=== PATIENT | male | born 1940 | race Caucasian/White ===

== ENCOUNTER 2017-01-13 05:51 | Day surgery (SDC) | payer MEDICARE ==
[2017-01-12 11:52] VITALS: BMI 21.9
[2017-01-13] MEDS ORDERED: Neomycin-Polymyxin 1 ML AMP ONE (06:30)
[2017-01-13] MEDS ORDERED: Lidocaine 2% w/Epinephrine 1:200K 20 ML VIAL ONE (06:30)
[2017-01-13] MEDS ORDERED: Bupivacaine PF 0.5% 30 ML VIAL ONE (06:30)
[2017-01-13 06:32] LABS: Hematocrit 53.2 % (42.0-52.0); Mean Platelet Volume 6.7 fL (7.4-10.4); White Blood Cell (WBC) Count 5.2 thou/uL (4.8-10.8)
[2017-01-13] MEDS ORDERED: CEFAZOLIN/Water 2 GM/20 ML SYRINGE ONE (06:33)
[2017-01-13 06:51] LABS: Anion Gap 10 mmol/L (10-20); BUN (Urea Nitrogen) 17 mg/dL (8.4-25.7); Calc. Creatinine Clearance 61 mL/min (70-130); Calcium 10.4 mg/dL (7.8-10.44); Carbon Dioxide 27 mmol/L (23-31); Chloride 106 mmol/L (98-107); Estimated GFR-MDRD 78
[2017-01-13] MEDS ORDERED: Fentanyl 100 MCG/2 ML VIAL ONE (06:57)
[2017-01-13] MEDS ORDERED: Lidocaine 1% (PF) 30 ML VIAL ONE (07:18)
--- NOTE | 2017-01-13 08:31 | OP ---
DATE OF OPERATION: 01/13/2017 PREOPERATIVE DIAGNOSIS: Right ring trigger finger. POSTOPERATIVE DIAGNOSIS: Right ring trigger finger. PROCEDURE: Right ring trigger finger release. SURGEON: Shay Braun M.D. ANESTHESIA: Local using 1% lidocaine plain. TECHNIQUE: The patient was given preoperative IV antibiotics, taken to the operating room, placed i n the supine position. The right hand and forearm were sterilely prepped and draped in the usual fa shion. 1% lidocaine plain was used with a local in the palm of the hand at the base of the ring fin carmelo over the area of the A1 bess. The right hand and forearm was exsanguinated and tourniquet at the proximal right forearm was raised to 200 mmHg. A longitudinal incision was made in the distal f lexor crease over the A1 bess. Blunt dissection was made down through the palmar fascia down to t he flexor tendon sheath. The A1 bess was noted to be very tight and was divided with tenotomy sci ssors. The underlying flexor tendons were intact and in good condition. The patient was able to th en actively flex and extend the ring finger without any further triggering. The wound was then irri gated with normal saline and closed using 3-0 Rapide. A sterile dressing was applied. The tourniqu et was released. The patient was transferred back to day surgery in stable condition. ESTIMATED BLOOD LOSS: None. COMPLICATIONS: None. TOURNIQUET TIME: Seven minutes. DISCHARGE MEDICATIONS: None. The patient has on the chart that he is allergic to HYDROCODONE, CODEINE and TRAMADOL and was told b ecause of medical conditions that he is unable to take anti-inflammatories, so the patient will have to use ice and Tylenol for pain relief. Follow up in my office in 1 week.
== END 2017-01-13 08:30 | disposition home or self-care (01) ==
LOC: SDC 05:51
PROVIDERS: ATTEND Orthopaedic Surgery
PROC: 0LN70ZZ Release Right Hand Tendon, Open Approach (ICD-10-PCS; principal; 2017-01-13)
DX: M65.341 Trigger finger, right ring finger (principal); Z88.5 Allergy status to narcotic agent; Z88.2 Allergy status to sulfonamides; Z88.1 Allergy status to other antibiotic agents; Z88.8 Allergy status to other drugs, medicaments and biological substances; Z79.82 Long term (current) use of aspirin; Z79.899 Other long term (current) drug therapy; Z90.49 Acquired absence of other specified parts of digestive tract; Z98.890 Other specified postprocedural states; Z87.891 Personal history of nicotine dependence
CPT/HCPCS: 36415; 80048; 85027; 99152; J2001; J3010; S0020

== ENCOUNTER 2017-04-05 13:11 | Emergency (ER) | payer MEDICARE ==
[2017-04-05 13:42] LABS: #Eosinphils 0.1 thou/uL (0.0-0.7); #Lymphocytes 0.9 thou/uL (1.20-3.40); #Monocytes 0.4 thou/uL (0.11-0.59); #Neutrophils 3.3 thou/uL (1.40-6.50); %Basophils 0.8 % (0.0-1.0); %Eosinophils 1.6 % (0.0-10.0); %Lymphocytes 19.6 % (21.0-51.0); %Monocytes 8.1 % (0.0-10.0); %Neutrophils 69.9 % (42.0-75.0); Hemoglobin 15.6 g/dL (14.0-18.0); Mean Corpuscular HGB CONC 33.3 g/dL (32.0-36.0); Mean Corpuscular Hemoglobin 31.7 pg (27.0-31.0); Mean Corpuscular Volume 95.4 fl (80.0-94.0); Platelet Count 145 thou/uL (130-400); RBC Distribution Width 11.8 % (11.5-14.5); Red Blood Cell (RBC) Count 4.91 mill/uL (4.70-6.10); White Blood Cell (WBC) Count 4.8 thou/uL (4.8-10.8)
[2017-04-05 14:03] LABS: ALT (SGPT) 29 U/L (8-55); AST (SGOT) 33 U/L (5-34); Albumin 4.3 g/dL (3.4-4.8); Alkaline Phosphatase 62 U/L (40-150); Anion Gap 12 mmol/L (10-20); BUN (Urea Nitrogen) 17 mg/dL (8.4-25.7); Bilirubin, Total 1.3 mg/dL (0.2-1.2); CK (CPK) 162 U/L (30-200); Calc. Creatinine Clearance 0 mL/min (70-130); Calcium 10.4 mg/dL (7.8-10.44); Carbon Dioxide 26 mmol/L (23-31); Chloride 106 mmol/L (98-107); Estimated GFR-MDRD 78; Globulin 2.5 g/dL (2.4-3.5); Glucose 108 mg/dL (83-110); Potassium 4.3 mmol/L (3.5-5.1); Protein, Total 6.8 g/dL (5.8-8.1); Sodium 140 mmol/L (136-145)
[2017-04-05 14:06] LABS: CKMB 6.1 ng/mL (0-6.6); Troponin I Less than 0.010 ng/mL (< 0.028)
--- NOTE | 2017-04-05 14:15 | RAD ---
CHEST 1 VIEW: HISTORY: Chest pain. COMPARISON: Chest 1 view 07/28/16. FINDINGS: The lungs are clear. No pneumothorax or effusion. Cardiac silhouette and mediastinal contours are w ithin normal limits. IMPRESSION: No acute intrathoracic abnormality. POS: [facility]
== END 2017-04-05 15:11 | disposition left against medical advice (07) ==
LOC: ERS 13:11
DX: R07.2 Precordial pain (principal); I25.2 Old myocardial infarction; E78.5 Hyperlipidemia, unspecified; I10 Essential (primary) hypertension; K21.9 Gastro-esophageal reflux disease without esophagitis; Z85.46 Personal history of malignant neoplasm of prostate; Z87.891 Personal history of nicotine dependence; Z79.899 Other long term (current) drug therapy; Z79.82 Long term (current) use of aspirin
CPT/HCPCS: 71045; 80053; 82553; 84484; 85025; 93005; 94760

== ENCOUNTER 2017-08-03 11:44 | Inpatient (IN) | payer MEDICARE ==
[2017-08-03 12:05] LABS: #Eosinphils 0.1 thou/uL (0.0-0.7); #Lymphocytes 1.2 thou/uL (1.20-3.40); #Monocytes 0.7 thou/uL (0.11-0.59); #Neutrophils 4.5 thou/uL (1.40-6.50); %Basophils 0.4 % (0.0-1.0); %Eosinophils 1.9 % (0.0-10.0); %Lymphocytes 18.3 % (21.0-51.0); %Monocytes 10.2 % (0.0-10.0); %Neutrophils 69.2 % (42.0-75.0); Hemoglobin 16.4 g/dL (14.0-18.0); Mean Corpuscular HGB CONC 34.3 g/dL (32.0-36.0); Mean Corpuscular Volume 93.1 fl (80.0-94.0); Mean Platelet Volume 6.8 fL (7.4-10.4); Platelet Count 150 thou/uL (130-400); RBC Distribution Width 11.8 % (11.5-14.5); Red Blood Cell (RBC) Count 5.14 mill/uL (4.70-6.10); White Blood Cell (WBC) Count 6.5 thou/uL (4.8-10.8)
[2017-08-03 12:29] LABS: ALT (SGPT) 28 U/L (8-55); AST (SGOT) 29 U/L (5-34); Albumin 4.4 g/dL (3.4-4.8); Alkaline Phosphatase 67 U/L (40-150); Anion Gap 9 mmol/L (10-20); BUN (Urea Nitrogen) 19 mg/dL (8.4-25.7); Calc. Creatinine Clearance 0 mL/min (70-130); Calcium 10.2 mg/dL (7.8-10.44); Carbon Dioxide 26 mmol/L (23-31); Chloride 107 mmol/L (98-107); Estimated GFR-MDRD 78; Globulin 2.6 g/dL (2.4-3.5); Glucose 106 mg/dL (83-110); Potassium 4.6 mmol/L (3.5-5.1); Sodium 137 mmol/L (136-145)
[2017-08-03 12:33] LABS: CKMB 4.5 ng/mL (0-6.6); Troponin I Less than 0.010 ng/mL (< 0.028)
--- NOTE | 2017-08-03 13:29 | RAD ---
PORTABLE CHEST ONE VIEW: Date: 08-03-17 Time: 12:17 p.m. History: Chest pain. FINDINGS: Comparison made with exam of 04-05-17. The heart size is normal. The lungs are expanded without focal areas of consolidation, pneumothorax, or pleural effusions. There are post op changes in the right shoulder. IMPRESSION: No acute process. POS: [facility]
[2017-08-03] MEDS ORDERED: Fluticasone Propionate Nasal Spray 16 gm Bottle NASAL PRN (14:09)
--- NOTE | 2017-08-03 15:49 | HP ---
DATE OF ADMISSION: 08/03/2017 CHIEF COMPLAINT: Chest pain. HISTORY OF PRESENT ILLNESS: This is a 77-year-old white male with known past medical history of jong nary artery disease with status post stents x5 many years ago and patient has been coming with recurr ent chest pains. The last time, he came was in March, but had to return back home as he did not wa nt to be admitted on an observation basis. At this time, the patient was at a gym and he was on an e xercise bike and as soon as he got onto the bike before when he started, he noted a severe chest pain in the center of his chest and decided to come to the ER. When the patient came to the ER, he was s itting on the bed and as he moved to the side, he developed the sudden chest pain, but his troponin s o far has been negative. His EKG was normal. Patient was seen in the ER, he was alert and oriented and did not appear to be in acute distress. He denies having any cough or any congestion, any histor y of sick contacts. He denied having any fevers. He denies having any trauma to his chest. PAST MEDICAL HISTORY: 1. History of coronary artery disease with status post stents. 2. Hypertension. 3. Hyperlipidemia. PAST SURGICAL HISTORY: 1. Appendectomy. 2. History of basal cell carcinoma excised from his left side of his cheek. 3. Bilateral cataract surgery. 4. Left inguinal hernia repair and colon resection in 2004. 5. Rotator cuff surgery. 6. Cardiac catheterization in 2007, stent in 2001. SOCIAL HISTORY: Patient has no history of smoking. No history of alcohol, no history of illicit pepper g use. He lives with his . FAMILY HISTORY: No evidence of family history of coronary artery disease, dying at the less than 50s -60s. Mother had a history of stroke and old age. REVIEW OF SYSTEMS: All 12 systems are reviewed with the patient thoroughly and found to be negative at this time except the ones described in the HPI. The following complete review of systems was nega tive, unless otherwise mentioned in the HPI or below: Constitutional: Weight loss or gain, sense of well-being, ability to conduct usual activities, exercise tolerance. Skin/Breast: Rash, itching, ch anges in hair growth or loss, nail changes, breast lumps, tenderness, swelling, nipple discharge. Ey es: Vision, double vision, tearing, blind spots, pain. ENT/Mouth: Headaches (location, time of ons et, duration, precipitating factors), vertigo, lightheadedness, injury. Vision, double vision, teari ng, blind spots, pain, nose bleeding, colds, obstruction, discharge, dental difficulties, gingival bl eeding, dentures, neck stiffness, pain, tenderness, masses in thyroid or other areas. Cardiovascular : Precordial pain, substernal distress, palpitations, syncope, dyspnea on exertion, orthopnea, noctu rnal paroxysmal dyspnea, edema, cyanosis, hypertension, heart murmurs, varicosities, phlebitis, pedro luis ication. Respiratory: Pain, shortness of breath, wheezing, stridor, cough, hemoptysis, fever or nig ht sweats. Gastrointestinal: Poor appetite, dysphagia, indigestion, abdominal pain, heartburn, eruc tation, nausea, vomiting, hematemesis, jaundice, constipation, or diarrhea, abnormal stools (jennifer-col ored, tarry, bloody, greasy, foul smelling), flatulence, hemorrhoids, recent changes in bowel habits. Genitourinary: Urgency, frequency, dysuria, nocturia, hematuria, polyuria, oliguria, unusual (or c hange in) color of urine, stones, hesitancy, change in size of stream, dribbling, acute retention or incontinence, libido, potency. Musculoskeletal: Pain, swelling, redness or heat of muscles or joint s, limitation, of motion, muscular weakness, atrophy, cramps. Neurologic/Psychiatric: Convulsions, par alyses, tremor, incoordination, parasthesias, difficulties with memory of speech, sensory or motor di sturbances, or muscular coordination (ataxia, tremor), emotional problems, anxiety, depression, previ ous psychiatric care, unusual perceptions, hallucinations. Allergy/Immunologic: Skin rash, anemia, bleeding tendency, polydipsia, polyuria, intolerance to heat or cold. HOME MEDICATIONS: Nitroglycerin spray, polyethylene glycol 17 grams p.o. at bedtime, aspirin 325 mg p.o. daily, amlodipine 2.5 mg p.o. daily, Zetia 10 mg p.o. at bedtime, fluticasone 1 spray daily, met oprolol 25 mg p.o. daily, ranitidine 300 mg p.o. daily, rosuvastatin 20 mg p.o. at bedtime, tamsulosi n 0.4 mg p.o. b.i.d. PHYSICAL EXAMINATION: VITAL SIGNS: Blood pressure is 130/88, heart rate is 56, respiratory rate is 18, saturation is 98% o n room air. GENERAL: The patient is moderately built and moderately nourished, does not appear to be in acute di stress at this time, is alert, oriented x3. HEENT: Atraumatic, normocephalic. PERRLA. Extraocular muscles intact. Mucous membranes pink and m oist. CARDIOVASCULAR: S1, S2 normal. No murmurs, rubs or gallops. LUNGS: Bilateral air entry was equal. No wheezing, no crackles. ABDOMEN: Soft, nontender. No guarding or rebound tenderness. Bowel sounds normal. MUSCULOSKELETAL: No calf tenderness. No pedal edema. No joint tenderness. No joint swelling. SKIN: No cyanosis, no erythema, no rash, no pallor. CENTRAL NERVOUS SYSTEM: Cranial nerves II-XII intact. No focal deficits were noted. LABORATORY DATA: WBC 6.5, hemoglobin is 16.1, hematocrit is 47.9, platelets is 150. Sodium is 137, potassium is 4.6, chloride 107, bicarbonate 26, BUN 19, creatinine 0.9, troponin 0.010. EKG was showing sinus bradycardia, but otherwise no evidence of any ST segment changes. Chest x-ray was unremarkable. ASSESSMENT AND PLAN: 1. Acute unstable angina. 2. Hypertension. 3. History of coronary artery disease. 4. Hyperlipidemia. PLAN: 1. Plan is to closely monitor this patient while in the hospital. We will keep him at bed rest at t his time and will consult cardiology. Patient has significant coronary artery disease history with 5 stents in the past and the patient had a chest pain 3 months ago, but was not evaluated by Cardiolog y and the patient had to go home from ER. The patient is high risk at this time. We will admit as a n inpatient as the patient would need at least 2 days and he would need a thorough evaluation of his cardiac status. At this time, we will do a 2-D echo and will closely monitor and we will hold off on his blood pressure and on his metoprolol at this time as the patient had the bradycardia and if it d rops less than 50, we will hold him at evening dose metoprolol. 2. Patient may need a nuclear stress test if his troponins remain negative, but because of the unsta ble angina, we will have Cardiology decide on that. 3. Patient has hypertension, well controlled. We will restart his home medications. We will closel y monitor blood pressures. 4. Hyperlipidemia. We will continue the patient on rosuvastatin. 5. History of coronary artery disease. We will continue the patient on aspirin at this time. 6. DVT prophylaxis. Lovenox 40 mg subQ daily. I spent 65 minutes with this patient.
[2017-08-03 16:19] LABS: Troponin I Less than 0.010 ng/mL (< 0.028)
[2017-08-03] MEDS ORDERED: Nitroglycerin 0.4 MG TAB (25 Tab Bottle) PO PRN (17:52)
[2017-08-03] MEDS ORDERED: Acetaminophen 650 MG Suppository PR PRN (17:52)
[2017-08-03] MEDS ORDERED: Ondansetron ODT 4 MG TAB PO PRN (17:52)
[2017-08-03 18:39] LABS: Troponin I Less than 0.010 ng/mL (< 0.028)
[2017-08-03 20:23] VITALS: BMI 22.2
[2017-08-03] MEDS: Famotidine 20 MG TAB PO SCH (21:02)
[2017-08-03] MEDS: Rosuvastatin 20 MG TAB PO SCH (21:02)
[2017-08-03] MEDS: Ezetimibe 10 MG TAB PO SCH (21:02)
[2017-08-03] MEDS: Docusate 100 MG CAP PO SCH (21:02)
[2017-08-03] MEDS: Tamsulosin HCl 0.4 MG CAP PO SCH (21:03)
[2017-08-04 05:20] LABS: #Eosinphils 0.2 thou/uL (0.0-0.7); #Monocytes 0.5 thou/uL (0.11-0.59); #Neutrophils 2.7 thou/uL (1.40-6.50); %Basophils 0.9 % (0.0-1.0); %Eosinophils 4.2 % (0.0-10.0); %Lymphocytes 22.4 % (21.0-51.0); %Neutrophils 60.5 % (42.0-75.0); Hemoglobin 15.9 g/dL (14.0-18.0); Mean Corpuscular HGB CONC 33.6 g/dL (32.0-36.0); Mean Corpuscular Hemoglobin 31.2 pg (27.0-31.0); Mean Corpuscular Volume 92.8 fl (80.0-94.0); Mean Platelet Volume 6.8 fL (7.4-10.4); Platelet Count 129 thou/uL (130-400); RBC Distribution Width 11.7 % (11.5-14.5); Red Blood Cell (RBC) Count 5.08 mill/uL (4.70-6.10); White Blood Cell (WBC) Count 4.5 thou/uL (4.8-10.8)
[2017-08-04 05:48] LABS: Anion Gap 10 mmol/L (10-20); BUN (Urea Nitrogen) 15 mg/dL (8.4-25.7); Calc. Creatinine Clearance 64 mL/min (70-130); Calcium 9.8 mg/dL (7.8-10.44); Carbon Dioxide 25 mmol/L (23-31); Cardiac Risk 2.4 (Less than 4.5); Chloride 108 mmol/L (98-107); Cholesterol 116 mg/dl (< 200 Desired); Estimated GFR-MDRD 85; Glucose 95 mg/dL (83-110); HDL Cholesterol 48 mg/dL (>60 Neg Risk); LDL Cholesterol, Calculated 57 mg/dL; Potassium 4.3 mmol/L (3.5-5.1); Sodium 139 mmol/L (136-145); Triglycerides 57 mg/dL (Less than 150)
[2017-08-04] MEDS ORDERED: Prevnar 13-Val Conj/PF 0.5 ML SYRINGE IM ONE (09:00)
[2017-08-04] MEDS ORDERED: Famotidine 20 MG TAB PO SCH (09:00)
[2017-08-04] MEDS ORDERED: Enoxaparin Sodium 40 MG/0.4 ML SYRINGE SC SCH (09:00)
[2017-08-04] MEDS: Tamsulosin HCl 0.4 MG CAP PO SCH ×3 (09:49→20:37)
[2017-08-04] MEDS: Aspirin 325 MG TAB PO SCH ×2 (09:49→11:39)
[2017-08-04] MEDS: Docusate 100 MG CAP PO SCH ×2 (09:49→20:37)
[2017-08-04] MEDS: Famotidine 20 MG TAB PO SCH ×3 (09:49→20:37)
[2017-08-04] MEDS: Amlodipine 5 MG TAB PO SCH ×2 (09:49→11:40)
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
[2017-08-04] MEDS: Ezetimibe 10 MG TAB PO SCH (20:37)
[2017-08-04] MEDS: Rosuvastatin 20 MG TAB PO SCH (20:37)
[2017-08-05] MEDS ORDERED: ADENOSINE 60 MG/20 ML VIAL ONE (10:11)
[2017-08-05] MEDS: Amlodipine 5 MG TAB PO SCH (10:47)
[2017-08-05] MEDS: Famotidine 20 MG TAB PO SCH (10:47)
[2017-08-05] MEDS: Docusate 100 MG CAP PO SCH (10:48)
[2017-08-05] MEDS: Aspirin 325 MG TAB PO SCH (10:49)
[2017-08-05] MEDS: Tamsulosin HCl 0.4 MG CAP PO SCH (10:49)
--- NOTE | 2017-08-05 11:54 | PDOC.PN ---
- Subjective Encounter Start Date: 08/04/17 Encounter Start Time: 15:15 Khai seen along with his at bedside. No other Concern noted. He had some imaging studoies of the stress test today. had chest pain again at rest. - Objective Resuscitation Status: Resuscitation Status FULL:Full Resuscitation MAR Reviewed: Yes Vital Signs & Weight: Vital Signs (12 hours) Temp Pulse Resp BP BP Pulse Ox 08/05/17 10:47 57 L 115/66 08/05/17 08:00 97.9 F 57 L 12 115/66 95 08/05/17 04:00 97.7 F 60 14 136/68 96 Weight Weight 140 lb 4.8 oz I&O: 08/04/17 08/05/17 08/06/17 06:59 06:59 06:59 Intake Total 340 840 Output Total 530 625 Balance -190 215 Result Diagrams: 08/04/17 04:53 08/04/17 04:53 Radiology Reviewed by me: Yes Phys Exam - Physical Examination HEENT: PERRLA, moist MMs Neck: no nodes, no JVD Respiratory: no wheezing, no rales Cardiovascular: RRR, no significant murmur Gastrointestinal: soft, non-tender Musculoskeletal: no edema, pulses present Neurological: normal sensation Dx/Plan (1) Chest pain Code(s): R07.9 - CHEST PAIN, UNSPECIFIED Status: Acute Qualifiers: Ischemic chest pain type: other angina pectoris type Comment: Pt has untable Angina, Scheduled for Stress test today and tomorrow. Pt will be continued on Aspirin/. Bb. (2) Coronary artery disease Code(s): I25.10 - ATHSCL HEART DISEASE OF [place] CORONARY ARTERY W/O ANG PCTRS Status: Chronic Qualifiers: Coronary Disease-Associated Artery/Lesion type: unspecified vessel or lesion type Associated angina: without angina Comment: Stable, no angina or CHF. (3) Dyslipidemia Code(s): E78.5 - HYPERLIPIDEMIA, UNSPECIFIED Status: Chronic Comment: on statin. (4) GERD (gastroesophageal reflux disease) Code(s): K21.9 - GASTRO-ESOPHAGEAL REFLUX DISEASE WITHOUT ESOPHAGITIS Status: Chronic Comment: Continue on PPI. (5) Hypertension Code(s): I10 - ESSENTIAL (PRIMARY) HYPERTENSION Status: Chronic Qualifiers: Hypertension type: essential hypertension Qualified Code(s): I10 - Essential (primary) hypertension Comment: Controlled. - Plan cont current plan of care, plan discussed w/ family, PT/OT, social services analyst, respiratory therapy, incentive spirometry, DVT proph w/lovenox * . Review of Systems - Review of Systems Eyes: negative: Pain, Vision Change, Conjunctivae Inflammation, Eyelid Inflammation, Redness, Other ENT: negative: Ear Pain, Ear Discharge, Nose Pain, Nose Discharge, Nose Congestion, Mouth Pain, Mouth Swelling, Throat Pain, Throat Swelling, Other Respiratory: negative: Cough, Dry, Shortness of Breath, Hemoptysis, SOB with Excertion, Pleuritic Pain, Sputum, Wheezing Cardiovascular: chest pain. negative: palpitations, orthopnea, paroxysmal nocturnal dyspnea, edema, light headedness, other Gastrointestinal: negative: Nausea, Vomiting, Abdominal Pain, Diarrhea, Constipation, Melena, Hematochezia, Other Musculoskeletal: negative: Neck Pain, Shoulder Pain, Arm Pain, Back Pain, Hand Pain, Leg Pain, Foot Pain, Other Skin: negative: Rash, Lesions, Ricco, Bruising, Other - Medications/Allergies Allergies/Adverse Reactions: Allergies Allergy/AdvReac Type Severity Reaction Status Date / Time codeine Allergy Intermediate Rash Verified 01/12/17 11:53 ciprofloxacin [From Cipro] Allergy Anaphylaxis Verified 01/12/17 11:53 hydrocodone Allergy Verified 01/12/17 11:53 sulfamethoxazole Allergy Anaphylaxis Verified 01/12/17 11:53 [From Bactrim] tramadol Allergy "makes me Verified 01/12/17 11:55 feel funny" trimethoprim [From Bactrim] Allergy Anaphylaxis Verified 01/12/17 11:53 Medications: Current Medications Acetaminophen (Tylenol) 650 mg [place] Q4H PRN PRN Reason: Headache/Fever or Pain Amlodipine Besylate (Norvasc) 2.5 mg PO QAM [facility] Last Admin: 08/05/17 10:47 Dose: 2.5 mg Aspirin (Aspirin) 325 mg PO DAILY [facility] Last Admin: 08/05/17 10:49 Dose: 325 mg Docusate Sodium (Colace) 100 mg PO BID [facility] Last Admin: 08/05/17 10:48 Dose: 100 mg Ezetimibe (Zetia) 10 mg PO HS [facility] Last Admin: 08/04/17 20:37 Dose: 10 mg Famotidine (Pepcid) 20 mg PO BID [facility] Last Admin: 08/05/17 10:47 Dose: 20 mg Fluticasone Propionate (Flonase Nasal [place]) 0 gm NASAL DAILYPRN PRN PRN Reason: Allergies Metoprolol Succinate (Toprol Xl) 25 mg PO QAM [facility] Last Admin: 08/05/17 10:49 Dose: 25 mg Nitroglycerin (Nitrostat) 0.4 mg PO Q5MIN PRN PRN Reason: Chest Pain Ondansetron HCl (Zofran Odt) 4 mg PO Q6H PRN PRN Reason: Nausea/Vomiting Rosuvastatin Calcium (Crestor) 20 mg PO HS [facility] Last Admin: 08/04/17 20:37 Dose: 20 mg Tamsulosin HCl (Flomax) 0.4 mg PO BID [facility] Last Admin: 08/05/17 10:49 Dose: 0.4 mg
--- NOTE | 2017-08-05 13:04 | NM ---
NUCLEAR MEDICINE CARDIAC STRESS TEST WITH EJECTION FRACTION: HISTORY: Chest pain. Coronary artery disease. ID. Stent. Dyslipidemia. COMPARISON: Nuclear medicine study from 2016. TECHNIQUE: Stress and rest was performed after the intravenous administration of 33 and 27 mCi technetium-99m se stamibi. FINDINGS: No evidence of scar or ischemia. Normal wall motion. Calculated ejection fraction is 66%. IMPRESSION: Normal nuclear medicine cardiac stress test and ejection fraction. POS: AMPARO
--- NOTE | 2017-08-05 13:10 | STRESS ---
Acquisition Time: 2017-08-05 09:01:47 Total Exercise Time: 00:04:00 Test Indications: CHEST PAIN Medications: Protocol: ADENOSINE Max HR: 089 BPM 62% of Pred: 142 BPM Max BP: 134/064 mmHG Max Work Load: 1.0 METS RESTING ECG: SINUS BRADYCARDIA AT [address]PM WITH NON-SPECIFIC ST SEGMENT CHANGES SYMPTOMS: NONE NORMAL BP RESPONSE ECTOPY: RARE PVC'S ECG STRESS: NO SIGNIFICANT CHANGES INTERPRETATION: INDETERMINATE ECG/AWAIT NUCLEAR IMAGES FOR DEFINITIVE DIAGNOSIS Confirmed by MIRTA BORDEN ([id number]) on 08/05/2017 1:09:35 PM Referred By: MD Myles MURRAY Confirmed By:MIRTA BORDEN
[2017-08-05 15:19] VITALS: BP 112/82; TEMP 98
--- NOTE | 2017-08-06 16:08 | EKG ---
Test Reason : Blood Pressure : / mmHG Vent. Rate : 055 BPM Atrial Rate : 055 BPM P-R Int : 156 ms QRS Dur : 088 ms QT Int : 420 ms P-R-T Axes : 016 020 074 degrees QTc Int : 401 ms Sinus bradycardia Otherwise normal ECG Confirmed by JUSTINO CUADRA ([id number]), supervising editor trailer SARA LEACH ([id number]) on 08/06/2017 4:07:43 PM Referred By: Confirmed By:JUSTINO CUADRA
== END 2017-08-05 16:25 | disposition home or self-care (01) | DRG 313 ==
LOC: ERS 11:44 → 2NO 17:41 → INTOOBSV 17:41 → OBSVTOIN 17:41
PROVIDERS: ADMIT Family Medicine; ATTEND Family Medicine
DX: R07.9 Chest pain, unspecified (principal); K21.9 Gastro-esophageal reflux disease without esophagitis; N40.0 Benign prostatic hyperplasia without lower urinary tract symptoms; I25.2 Old myocardial infarction; E78.5 Hyperlipidemia, unspecified; Z95.5 Presence of coronary angioplasty implant and graft; Z85.828 Personal history of other malignant neoplasm of skin; Z79.899 Other long term (current) drug therapy; Z79.82 Long term (current) use of aspirin; Z79.51 Long term (current) use of inhaled steroids; Z88.1 Allergy status to other antibiotic agents; Z88.5 Allergy status to narcotic agent; Z88.2 Allergy status to sulfonamides; Z88.8 Allergy status to other drugs, medicaments and biological substances; Z91.048 Other nonmedicinal substance allergy status; Z87.891 Personal history of nicotine dependence; Z85.46 Personal history of malignant neoplasm of prostate; I25.10 Atherosclerotic heart disease of native coronary artery without angina pectoris
CPT/HCPCS: 36415; 71045; 78452; 80048; 80053; 80061; 82553; 84484; 85025; 93005; 93017; 93306; 94760; A9500; J0153

== ENCOUNTER 2018-05-11 22:31 | Emergency (ER) | payer MEDICARE ==
[2018-05-12] MEDS ORDERED: diphenhydrAMINE 50 MG/ML VIAL ONE (00:25)
[2018-05-12] MEDS ORDERED: Metoclopramide HCl 10 MG/2 ML VIAL ONE (00:25)
--- NOTE | 2018-05-12 10:15 | CT ---
PRELIMINARY REPORT/[facility]/EMERGENTY AFTER-HOURS PROCEDURE CT Head Without Contrast EXAM DATE/TIME: 05/12/2018 12:01 AM CLINICAL HISTORY: 77 years old, male; Pain; Headache; Headache not specified; Patient HX: Er 24; M77 presents to ed wit h C/O headache, onset 8pm. PT took 2 500mg acetaminophen tablets with no relief. Reports that he has never had a headache that did not respond to that amount of acetaminophen. Pt's last headache was at least 6 weeks ago. Denies n/v/d. TECHNIQUE: Axial computed tomography images of the head/brain without contrast. COMPARISON: No relevant prior studies available. FINDINGS: Brain: No intracrainal hemorrhage. No midline shift. The brain parenchyma appears normal for age. Mod erate global cerebral volume loss. Ventricles: No ventriculomegaly. Bones/joints: Unremarkable. No acute fracture. Sinuses: Visualized sinuses are unremarkable. No acute sinusitis. Mastoid air cells: Visualized mastoid air cells are unremarkable. No mastoid effusion. Soft tissues: Unremarkable. IMPRESSION: No acute intracranial abnormality. Thank you for allowing us to participate in the care of your patient. Dictated and Authenticated by: James Shafer MD 05/12/2018 12:16 AM Central Time ([place] & [place]) FINAL REPORT CERVICAL SPINE CT NONCONTRAST: Date: 05/11/18 FINDINGS/IMPRESSION: I agree with the above provided preliminary interpretation from [facility]. POS: AZUCENA
== END 2018-05-12 02:13 | disposition home or self-care (01) ==
LOC: ERS 22:31
DX: R51 Headache (principal); E78.5 Hyperlipidemia, unspecified; K21.9 Gastro-esophageal reflux disease without esophagitis; N40.0 Benign prostatic hyperplasia without lower urinary tract symptoms; I25.2 Old myocardial infarction; I10 Essential (primary) hypertension; Z87.891 Personal history of nicotine dependence; Z85.46 Personal history of malignant neoplasm of prostate; Z79.82 Long term (current) use of aspirin; Z79.899 Other long term (current) drug therapy
CPT/HCPCS: 70450; 96365; 96375; J1200; J2765

== ENCOUNTER 2020-12-19 09:40 | Outpatient (CLI) | payer MEDICARE | END 2020-12-19 09:41 | disposition home or self-care (01) | LOC: BICMAMMO 09:40 | PROVIDERS: ATTEND Family Medicine | DX: Z13.820 Encounter for screening for osteoporosis (principal); M81.0 Age-related osteoporosis without current pathological fracture | CPT/HCPCS: 77080 ==

== ENCOUNTER 2020-12-24 11:25 | Outpatient (CLI) | payer MEDICARE | END 2020-12-24 11:26 | disposition home or self-care (01) | LOC: BICRAD 11:25 | PROVIDERS: ATTEND Family Medicine | DX: M53.9 Dorsopathy, unspecified (principal); M47.814 Spondylosis without myelopathy or radiculopathy, thoracic region; M47.816 Spondylosis without myelopathy or radiculopathy, lumbar region; M43.17 Spondylolisthesis, lumbosacral region | CPT/HCPCS: 72072; 72100 ==

== ENCOUNTER 2021-02-04 13:39 | Outpatient (CLI) | payer MEDICARE | END 2021-02-04 13:40 | disposition home or self-care (01) | LOC: BICRAD 13:39 | PROVIDERS: ATTEND Family Medicine | DX: M77.8 Other enthesopathies, not elsewhere classified (principal); M19.032 Primary osteoarthritis, left wrist; M19.042 Primary osteoarthritis, left hand ==

== ENCOUNTER 2021-11-27 07:24 | Outpatient (CLI) | payer MEDICARE ==
[2021-11-27] MEDS ORDERED: Iopamidol 370 76% 100 ML VIAL ONE (09:37)
== END 2021-11-27 07:25 | disposition home or self-care (01) ==
LOC: CT 07:24
PROVIDERS: ATTEND Urology
DX: C61 Malignant neoplasm of prostate (principal); N28.1 Cyst of kidney, acquired; Z92.3 Personal history of irradiation
CPT/HCPCS: 74178; 82565; Q9967

== ENCOUNTER 2022-01-06 10:14 | Outpatient (CLI) | payer MEDICARE | END 2022-01-06 10:15 | disposition home or self-care (01) | LOC: BICCT 10:14 | PROVIDERS: ATTEND Family Medicine | DX: M54.6 Pain in thoracic spine (principal); M25.552 Pain in left hip; M85.88 Other specified disorders of bone density and structure, other site; M47.814 Spondylosis without myelopathy or radiculopathy, thoracic region | CPT/HCPCS: 72128 ==

== ENCOUNTER 2022-06-04 12:24 | Emergency (ER) | payer OTHER, MEDICARE | END 2022-06-04 15:03 | disposition home or self-care (01) | LOC: ERS 12:24 | DX: S20.219A Contusion of unspecified front wall of thorax, initial encounter (principal); S40.811A Abrasion of right upper arm, initial encounter; K21.9 Gastro-esophageal reflux disease without esophagitis; I10 Essential (primary) hypertension; E78.00 Pure hypercholesterolemia, unspecified; W01.0XXA Fall on same level from slipping, tripping and stumbling without subsequent striking against object, initial encounter; Z87.891 Personal history of nicotine dependence; Z79.82 Long term (current) use of aspirin ==

== ENCOUNTER 2022-07-30 09:38 | Outpatient (CLI) | payer MEDICARE | END 2022-07-30 09:39 | disposition home or self-care (01) | LOC: MRI 09:38 | PROVIDERS: ATTEND Family Medicine | DX: R41.3 Other amnesia (principal); G93.9 Disorder of brain, unspecified; R90.82 White matter disease, unspecified | CPT/HCPCS: 70551 ==

== ENCOUNTER 2023-04-12 12:03 | Outpatient (CLI) | payer MEDICARE | END 2023-04-12 12:04 | disposition home or self-care (01) | LOC: BICRAD 12:03 | PROVIDERS: ATTEND Family Medicine | DX: J41.1 Mucopurulent chronic bronchitis (principal); J18.9 Pneumonia, unspecified organism | CPT/HCPCS: 71046 ==

== ENCOUNTER 2023-08-12 08:56 | Outpatient (CLI) | payer MEDICARE | END 2023-08-12 08:57 | disposition home or self-care (01) | LOC: CT 08:56 | PROVIDERS: ATTEND Family Medicine | DX: R63.4 Abnormal weight loss (principal); R09.89 Other specified symptoms and signs involving the circulatory and respiratory systems; J34.2 Deviated nasal septum; I70.90 Unspecified atherosclerosis; J43.9 Emphysema, unspecified; N28.1 Cyst of kidney, acquired; M43.16 Spondylolisthesis, lumbar region; J34.89 Other specified disorders of nose and nasal sinuses | CPT/HCPCS: 71260; 74177; 82565 ==

== ENCOUNTER 2024-11-20 07:57 | Emergency (ER) | payer OTHER ==
[2024-11-20] MEDS ORDERED: Lidocaine 1% w/Epinephrine 1:100K 20 ML VIAL ONE (08:42)
[2024-11-20] MEDS ORDERED: Oxymetazoline HCl 0.05% (30 ML BOT) ONE (08:42)
[2024-11-20] MEDS ORDERED: Nitroglycerin 2% Ointment 1 INCH/1 GM Packet ONE (08:43)
[2024-11-20 09:28] LABS: #Basophils 0.04 10x3/uL (0.0-0.2); #Eosinophils 0.11 10x3/uL (0.0-0.7); #Monocytes 0.59 10x3/uL (0.11-0.59); #Neutrophils 7.22 10x3/uL (1.40-6.50); %Basophils 0.5 % (0.0-1.0); %Eosinophils 1.3 % (0.0-10.0); %Lymphocytes 8.0 % (21.0-51.0); %Monocytes 6.8 % (0.0-10.0); %Neutrophils 82.8 % (42.0-75.0); Hematocrit 45.2 % (42.0-52.0); Hemoglobin 14.4 g/dL (14.0-18.0); Mean Corpuscular Hemoglobin 29.5 pg (27.0-31.0); Mean Corpuscular Volume 92.6 fL (78.0-98.0); Platelet Count 166 10x3/uL (130-400); Red Blood Cell (RBC) Count 4.88 mill/uL (4.70-6.10); White Blood Cell (WBC) Count 8.71 10x3/uL (4.8-10.8)
[2024-11-20 09:41] LABS: INR-International Normal Ratio 1.3; Prothrombin Time 15.9 sec (12.0-14.7)
[2024-11-20 09:42] LABS: PTT 38.2 sec (22.9-36.1)
[2024-11-20 09:53] LABS: ALT (SGPT) 16 U/L (Less than 45); AST (SGOT) 26 U/L (11-34); Albumin 3.8 g/dL (3.1-4.5); Alkaline Phosphatase 88 U/L (40-110); Anion Gap 13 mmol/L (10-20); BUN (Urea Nitrogen) 21 mg/dL (8.4-25.7); Bilirubin, Total 1.1 mg/dL (0.3-1.2); Calc. Creatinine Clearance 0 mL/min (70-130); Calcium 10.0 mg/dL (7.8-10.44); Carbon Dioxide 28 mmol/L (23-31); Chloride 106 mmol/L (98-107); Globulin 2.6 g/dL (2.4-3.5); Glucose 103 mg/dL (83-110); Potassium 4.4 mmol/L (3.5-5.1); Sodium 143 mmol/L (136-145)
[2024-11-20] MEDS ORDERED: HUM PROTHROMBIN CPLX(PCC)4FACT 2,000 UNITS in Admixture Fee 1 EACH IV SCH (10:00)
== END 2024-11-20 15:10 | disposition short-term general hospital (02) ==
LOC: ERS 07:57
DX: R04.0 Epistaxis (principal); I48.91 Unspecified atrial fibrillation; I25.2 Old myocardial infarction; E78.00 Pure hypercholesterolemia, unspecified; I10 Essential (primary) hypertension; Z79.01 Long term (current) use of anticoagulants; Z79.82 Long term (current) use of aspirin; Z79.899 Other long term (current) drug therapy; Z95.5 Presence of coronary angioplasty implant and graft; Z87.891 Personal history of nicotine dependence
CPT/HCPCS: 30901; 80053; 85025; 85610; 85730; 86850; 86900; 86901; 93005; 96374; J7168